=== PATIENT | male | born 1970 | race Caucasian/White ===

== ENCOUNTER 2019-06-20 12:00 | Emergency (ER) | payer OTHER ==
[~2019-06-20] VITALS: Ht 154.9 cm; Wt 77.4 kg
[~2019-06-20 12:00] MED LIST: IBUP-1542 PO
[2019-06-20 12:24] VITALS: BP 133/76; PULSE 80; RESP 20; Ht 154.9 cm; Wt 77.4 kg
[2019-06-20] MEDS ORDERED: KETOROLAC 30 MG INJ IM STA (12:58)
== END 2019-06-20 14:28 | disposition home or self-care (01) ==
LOC: FTE 12:00
DX: S43.402A Unspecified sprain of left shoulder joint, initial encounter (principal); I25.2 Old myocardial infarction; V86.09XA Driver of other special all-terrain or other off-road motor vehicle injured in traffic accident, initial encounter; Z87.891 Personal history of nicotine dependence
CPT/HCPCS: 71045; 73030; 96372; 99284; J1885